=== PATIENT | male | born 1965 | race Two or more races ===

== ENCOUNTER 2019-03-23 07:05 | Observation (INO) | payer OTHER ==
[~2019-03-23] VITALS: Ht 167.6 cm; Wt 127.8 kg
[~2019-03-23 07:05] MED LIST: FLUO10CA15 PO; HYDR-2541 PO; LEVA750T7 PO; MULTCAP PO; OMEP-172 PO; OSEL75CA PO; TYLE325T5 PO; ZYRT10CA PO
[2019-03-23] MEDS ORDERED: LORazepam 2 MG/ML VIAL (J2060) IV STA (07:27)
[2019-03-23 07:40] LABS: BASO # 0.1 10^3/uL (0.0-0.2); BASO % 0.6 % (0.0-1.0); EOS # 0.3 10^3/uL (0.0-0.5); EOS % 4.2 % (0.0-3.0); HEMATOCRIT 51.2 % (42.0-52.0); HEMOGLOBIN 16.8 g/dl (13.5-17.5); LYMPH # 3.6 10^3/uL (1.5-5.0); LYMPH % 43.6 % (24.0-44.0); MEAN CORPUSCULAR HEMOGLOBIN 28.6 pg (27.0-33.0); MEAN CORPUSCULAR HGB CONC 32.8 g/dl (32.0-36.5); MEAN CORPUSCULAR VOLUME 87.1 fl (80.0-96.0); MONO # 0.5 10^3/uL (0.0-0.8); MONO % 5.8 % (0.0-5.0); NEUTROPHILS # 3.7 10^3/uL (1.5-8.5); NEUTROPHILS % 45.6 % (36.0-66.0); PLATELET COUNT, AUTOMATED 253 10^3/uL (150-450); RED BLOOD COUNT 5.88 10^6/uL (4.30-6.10); WHITE BLOOD COUNT 8.1 10^3/uL (4.0-10.0)
[2019-03-23 07:49] LABS: ABG BASE EXCESS 1.9 (-2.0-2.0); ABG HCO3 21.3 MEQ/L (22.0-26.0); ABG O2 SATURATION 99.6 % (95.0-99.0); ABG PARTIAL PRESSURE CO2 22.7 mmHg (35.0-45.0); ABG PARTIAL PRESSURE O2 387.9 mmHg (75.0-100.0); ABG STANDARD HCO3 26.2 MEQ/L (22.0-26.0)
--- NOTE | 2019-03-23 08:05 | REP ---
Portable chest x-ray: Single view. History: Chest pain. Comparison chest x-ray: April 13, 2015. Findings: Monitoring electrodes are seen overlying the chest. Heart is not enlarged. Pulmonary vasculature is not increased. No infiltrate is seen in the lung gunn. No bony abnormality. Impression: No acute disease. Electronically Signed by Nikita Faulkner MD 03/23/2019 07:57 A
[2019-03-23 08:13] LABS: BLOOD UREA NITROGEN 20 MG/DL (7-18); CALCIUM LEVEL 9.9 MG/DL (8.5-10.1); CARBON DIOXIDE LEVEL 25 MEQ/L (21-32); CHLORIDE LEVEL 104 MEQ/L (98-107); CK-MB VALUE MASS 2.7 NG/ML (<3.6); CPK CREATINE PHOSPHOKINASE 491 U/L (39-308); CREATININE FOR GFR 1.34 MG/DL (0.70-1.30); GLOMERULAR FILTRATION RATE 59.6 (>56); GLUCOSE, FASTING 107 MG/DL (70-100); MB/CK RELATIVE INDEX 0.55 (< OR =4); SODIUM LEVEL 139 MEQ/L (136-145); TROPONIN I < 0.02 NG/ML (< 0.10)
[2019-03-23] MEDS ORDERED: VITA100066 PO (08:27)
[2019-03-23] MEDS ORDERED: BUSP5TA PO (08:27)
[2019-03-23] MEDS ORDERED: DICL50TAB PO (08:27)
[2019-03-23] MEDS ORDERED: MM S100C PO ×2 (08:27)
[2019-03-23] MEDS ORDERED: ROSU40TA4 PO (08:27)
[2019-03-23] MEDS ORDERED: REFR0.5D8 OU (08:27)
[2019-03-23] MEDS ORDERED: MECLIZINE 25 MG TABLET PO ONE (09:00)
--- NOTE | 2019-03-23 09:27 | REP ---
CT brain: 03/23/2019. Indication: Dizziness. Nystagmus. Comparison: None. Technique: Unenhanced axial CT images of the brain were obtained from skull base to vertex. Findings: Mild diffuse volume loss is present. There is no acute intracranial hemorrhage, acute cortical infarction, mass effect or hydrocephalous. The visualized paranasal sinuses and mastoid air cells are free of significant fluid. Impression: No acute intracranial process. Mild diffuse volume loss. Electronically Signed by Perry Cardenas DO 03/23/2019 09:18 A
[2019-03-23] MEDS ORDERED: TRIA37.5 PO (12:59)
[2019-03-23] MEDS ORDERED: SENN-23 PO (12:59)
[2019-03-23] MEDS ORDERED: ADVI200T PO (12:59)
[2019-03-23] MEDS ORDERED: ACETAMINOPHEN TAB 650MG DOSE (2X325MG) PO PRN (13:15)
[2019-03-23] MEDS ORDERED: MAALOX 30 ML SUSP *UDC PO PRN (13:15)
[2019-03-23] MEDS ORDERED: ALPRAZolam 0.25 MG TAB PO PRN (13:15)
[2019-03-23] MEDS ORDERED: MOM 30ML SUSPENSION UDC PO PRN (13:15)
[2019-03-23] MEDS ORDERED: SENOKOT S TAB PO PRN (13:30)
[2019-03-23] MEDS ORDERED: IBUPROFEN 200 MG TAB PO PRN (13:30)
[2019-03-23] MEDS ORDERED: busPIRone 5 MG TAB PO PRN (13:30)
--- NOTE | 2019-03-23 13:37 | HPEPDOC ---
General Date of Admission Mar 23, 2019 at 13:11 Date of Service: Mar 23, 2019 Primary Care Physician: A Chief Complaint The patient is a 53-year-old male admitted with a reason for visit of Shawn (Acute Kidney Injury. Source: Patient Exam Limitations: No limitations Timing/Duration: Unsure Severity: Mild Associated Symptoms: Other (chest pressure, dizziness, shortness of breath, anxious) History of Present Illness 53 years old -[place] male with past medical history of anxiety, hypertension, mood swings, seasonal allergies, obesity, status post lower back surgery and likely surgery and foot surgery, was in usual state of health until he called his ex- as he was complaining of chest pressure, shortness of breath, anxious and as per his ex-. He was yelling in the car. Chest pressure much underlies all of the chest pressure-like feeling, nonradiating, associated with shortness of breath and dizziness and doom-like feeling, not relieved with any medication and not exacerbated by any position. Patient again felt dizzy before discharge from ED and hence we were called in to admit patient for observation. Home Medications Scheduled Cholecalciferol (Vitamin D3) (Vitamin D3) 1,000 Unit Tablet, 2,000 UNIT PO DAILY, (Reported) Diclofenac Sodium (Diclofenac Sodium) 50 Mg Tablet.dr, 100 MG PO BID, (Reported) Multivitamin (Multivitamins) 1 Cap Cap, 1 CAP PO DAILY, (Reported) Omeprazole (Omeprazole) 20 Mg Cap, 20 MG PO BID, (Reported) Rosuvastatin Calcium (Rosuvastatin Calcium) 40 Mg Tablet, 40 MG PO DAILY, (Reported) Triamterene/Hydrochlorothiazid (Triamterene-Hctz 37.5-25 mg Tb) 1 Each Tablet, 1 TAB PO DAILY, (Reported) Scheduled PRN Buspirone HCl (Buspirone HCl) 5 Mg Tablet, 5 MG PO TID PRN for ANXIETY/AGITATION, (Reported) Carboxymethylcellulose Sodium (Refresh Tears) 15 Ml Drops, 1 DROP OU QID PRN for DRY EYES, (Reported) Ibuprofen (Advil) 200 Mg Tablet, 400 MG PO QID PRN for PAIN, (Reported) Sennosides/Docusate Sodium (Senna-S Tablet) 1 Each Tablet, 3 TAB PO TID PRN for CONSTIPATION, (Reported) Allergies Coded Allergies: shellfish derived (Verified Allergy, Severe, anaphylaxis, 03/23/19) ENVIROMENTAL (Verified Allergy, Mild, 03/23/19) Past Medical History Medical History Hypertension, mood swings, seasonal allergy, obesity, GERD Surgical History Lower back surgery likely surgery, bone spur surgery to both feet Social History * Smoker: Denies Alcohol: Denies Drugs: denies A-FIB/CHADSVASC A-FIB History Current/History of A-Fib/PAF?: No Review of Systems Constitutional: Denies: Chills, Fever, Malaise, Night Sweats, Weakness, Fatigue, Weight Loss, Lethargy, Other Eyes: Denies: Pain, Vision change, Conjunctivae inflammation, Eyelid inflammation, Redness, Other ENT: Denies: Head Aches, Ear Pain, Dysphagia, Sinus Congestion, Post Nasal Drip, Sore Throat, Epistaxis, Other Symptoms Skin: Denies: Rash, Lesions, Jaundice, Bruising, Itching, Dry, Breakdown, Nail Changes, Other Pulmonary: Reports: Dyspnea Cardiovascular: Reports: Chest Pain Gastrointestinal: Denies: Nausea, Vomiting, Abdominal Pain, Diarrhea, Constipation, Melena, Hematochezia, Other Symptoms Genitourinary: Denies: Dysuria, Frequency, Incontinence, Hematuria, Retention, Other Symptoms Hematologic: Denies: Bruising, Bleeding Excessively, Petecchia, Purpura, Enlarged Lymph Nodes, Other Hematologic Endocrine: Denies: Polydipsia, Polyphagia, Polyuria, Heat Intolerance, Cold Intolerance, Other Endocrine Sx Musculoskeletal: Denies: Neck Pain, Back Pain, Shoulder Pain, Arm Pain, Hand Pain, Leg Pain, Foot Pain, Joint Pain, Muscle Pain, Spasms, Other Symptoms Neurological: Denies: Weakness, Numbness, Incoordination, Change in speech, Confusion, Seizures, Other Symptoms Psych: Reports: Anxiety Physical Examination General Exam: Positive: Alert, Cooperative Eye Exam: Positive: PERRLA, Conjunctiva & lids normal ENT Exam: Positive: Atraumatic, Mucous membr. moist/pink Neck Exam: Positive: Supple Chest Exam: Positive: Clear to auscultation, Normal air movement Heart Exam: Positive: Rate Normal, Normal S1, Normal S2 Abdomen Exam: Positive: Normal bowel sounds, Soft, Tenderness Extremity Exam: Positive: Normal pulses Skin Exam: Positive: Nl turgor and temperature Neuro Exam: Positive: Strength at 5/5 X4 ext, Sensation Intact, Cranial Nerves 3-12 NL Psych Exam: Positive: Anxiety Vital Signs Vital Signs Date Time Temp Pulse Resp B/P (MAP) Pulse Ox O2 Delivery O2 Flow Rate FiO2 03/23/19 12:00 68 18 111/63 (79) 96 03/23/19 07:06 96.0 Room Air Laboratory Data Labs 24H Laboratory Tests 2 03/23/19 07:19: Immature Granulocyte % (Auto) 0.2, Neutrophils (%) (Auto) 45.6, Lymphocytes (%) (Auto) 43.6, Monocytes (%) (Auto) 5.8H, Eosinophils (%) (Auto) 4.2H, Basophils (%) (Auto) 0.6, Neutrophils # (Auto) 3.7, Lymphocytes # (Auto) 3.6, Monocytes # (Auto) 0.5, Eosinophils # (Auto) 0.3, Basophils # (Auto) 0.1, Nucleated Red Blood Cells % (auto) 0.0, Anion Gap 10, Glomerular Filtration Rate 59.6, Calcium Level 9.9, Total Creatine Kinase 491H, Creatine Kinase MB 2.7, Creatine Kinase MB Relative Index 0.55, Troponin I < 0.02 03/23/19 07:36: Blood Gas Bicarbonate Standard 26.2H, Arterial Blood pH 7.590H, Arterial Blood Partial Pressure CO2 22.7L, Arterial Blood Partial Pressure O2 387.9H, Arterial Blood Total CO2 22.0, Arterial Blood HCO3 21.3L, Arterial Blood Base Excess 1.9, Arterial Blood Oxygen Saturation 99.6H CBC/BMP Laboratory Tests 03/23/19 07:19 Problems (1) Chest pressure Status: Acute Problem Text: 53 years old -[place] male with past medical history of anxiety, hypertension, mood swings, seasonal allergies, obesity, status post lower back surgery and likely surgery and foot surgery, was in usual state of health until he called his ex- as he was complaining of chest pressure, shortness of breath, anxious and as per his ex-. He was yelling in the car. Chest pressure much underlies all of the chest pressure-like feeling, nonradiating, associated with shortness of breath and dizziness and doom-like feeling, not relieved with any medication and not exacerbated by any position. Patient is completely asymptomatic. This time. No chest pain, headache, shortness of breath, nausea, vomiting, abdominal pain, etc. Admit patient to [facility] floor with telemetry for observation Serial troponins CBC, CMP in a.m. Anxiolytic medication for anxiety DVT prophylaxis with Lovenox Regular diet Activity as tolerated (2) SHAWN (acute kidney injury) Status: Acute Problem Text: Most likely prerenal and patient also dyazide diuretics Hold diuretics Start half-normal saline 150 mL per hour Reginald labs in a.m. (3) Vertigo Status: Acute Problem Text: None, most likely secondary to anxiety , No further workup needed at the present time , Antivert when necessary (4) Anxiety Status: Chronic Problem Text: Anxiety disorder, possible panic episodes Xanax 0.25 mg by mouth every 6 hours when necessary Further workup management with PCP as an outpatient Plan / VTE VTE Prophylaxis Ordered?: Yes EDENILSON MCMANUS MD Mar 23, 2019 13:37
[2019-03-23 15:49] VITALS: BP 135/62
[2019-03-23] MEDS: DOCUSATE SODIUM 100 MG CAP PO SCH ×2 (16:54→20:45)
[2019-03-23] MEDS: MECLIZINE 25 MG TABLET PO PRN (16:55)
[2019-03-23] MEDS: NS 1,000 ML IV SCH ×2 (16:55→23:48)
--- NOTE | 2019-03-23 20:13 | ECGEPIP ---
[facility] - ED Test Date: 2019-03-23 Pat Name: CARLOS GREGORIO Department: Room: - Gender: Male [employer]: : 1965 Requested By: Adam Arce Order Number: [id number] Reading MD: Andra Gu Measurements Intervals [place] Rate: 67 P: 60 DC: 179 QRS: 26 QRSD: 88 T: 23 QT: 401 QTc: 426 Interpretive Statements SINUS RHYTHM NSTTW abnormalities NO PRIOR Electronically Signed on 03-23-2019 20:13:33 EST by Andra Gu
[2019-03-23] MEDS: OMEPRAZOLE 20 MG CAP PO SCH (20:45)
[2019-03-23] MEDS ORDERED: ENOXAPARIN 40 MG/0.4 ML SYRINGE (J1650) SC SCH (21:00)
[2019-03-23 22:00] VITALS: BP 126/81
[2019-03-24 04:00] VITALS: BP 129/81
[2019-03-24] MEDS: NS 1,000 ML IV SCH ×2 (05:15→06:55)
[2019-03-24 05:59] LABS: HEMOGLOBIN 15.6 g/dl (13.5-17.5); MEAN CORPUSCULAR HEMOGLOBIN 28.3 pg (27.0-33.0); MEAN CORPUSCULAR HGB CONC 31.8 g/dl (32.0-36.5); MEAN CORPUSCULAR VOLUME 88.9 fl (80.0-96.0); PLATELET COUNT, AUTOMATED 221 10^3/uL (150-450); RED BLOOD COUNT 5.51 10^6/uL (4.30-6.10); WHITE BLOOD COUNT 6.3 10^3/uL (4.0-10.0)
[2019-03-24 06:28] LABS: ALBUMIN 3.4 GM/DL (3.2-5.2); ALT/SGPT 55 U/L (12-78); BILIRUBIN,TOTAL 0.7 MG/DL (0.2-1.0); BLOOD UREA NITROGEN 17 MG/DL (7-18); CALCIUM LEVEL 8.6 MG/DL (8.5-10.1); CARBON DIOXIDE LEVEL 27 MEQ/L (21-32); CHLORIDE LEVEL 108 MEQ/L (98-107); CREATININE FOR GFR 1.12 MG/DL (0.70-1.30); GLOMERULAR FILTRATION RATE > 60.0 (>56); GLUCOSE, FASTING 103 MG/DL (70-100); MAGNESIUM LEVEL 2.1 MG/DL (1.8-2.4); POTASSIUM SERUM 3.9 MEQ/L (3.5-5.1); SODIUM LEVEL 143 MEQ/L (136-145); TOTAL PROTEIN 7.1 GM/DL (6.4-8.2)
[2019-03-24] MEDS: OMEPRAZOLE 20 MG CAP PO SCH (08:11)
[2019-03-24] MEDS: DOCUSATE SODIUM 100 MG CAP PO SCH (08:11)
[2019-03-24] MEDS: MECLIZINE 25 MG TABLET PO PRN (08:11)
[2019-03-24] MEDS ORDERED: ROSUVASTATIN 10 MG TAB (CRESTOR) PO SCH (09:00)
[2019-03-24] MEDS ORDERED: VITAMIN D 1,000 INTERNATIONAL UNITS TABLET PO SCH (09:00)
[2019-03-24] MEDS ORDERED: DYAZIDE 37.5/25 CAP (TRIAM/HCTZ) PO SCH (09:00)
[2019-03-24] MEDS ORDERED: MECL-86 PO (10:15)
--- NOTE | 2019-03-24 12:58 | DS.PDOC ---
Discharge Summary General Date of Admission Mar 23, 2019 at 13:11 Date of Discharge 03/24/19 Discharge Summary PROCEDURES PERFORMED DURING STAY: None. ADMITTING DIAGNOSES: 1. Dizziness, SHAWN. DISCHARGE DIAGNOSES: 1. Dizziness, SHAWN, hypertension COMPLICATIONS/CHIEF COMPLAINT: Shawn (Acute Kidney Injury. HISTORY OF PRESENT ILLNESS: 53 years old -Citizen Of [place] male with past medical history of anxiety, hypertension, mood swings, seasonal allergies, obesity, status post lower back surgery and likely surgery and foot surgery, was in usual state of health until he called his ex- as he was complaining of chest pressure, shortness of breath, anxious and as per his ex-. He was yelling in the car. Chest pressure much underlies all of the chest pressure-like feeling, nonradiating, associated with shortness of breath and dizziness and doom-like feeling, not relieved with any medication and not exacerbated by any position. Patient again felt dizzy before discharge from ED and hence we were ca lled in to admit patient for observation.. HOSPITAL COURSE: Patient was admitted to [facility] with telemetry for further observation. Patient's dizziness has resolved. His troponins 3 were negative, and all the workup essentially was within normal limits and he wishes to be discharged. Patient will be discharged home on all his current home medication as well as an Also discussed with patient his ex- on the phone on patient's wishes and explained the patient the medical management and his admission to her. Patient will follow with his PCP for continued care... DISCHARGE MEDICATIONS: Please see below. ALLERGIES: Please see below. PHYSICAL EXAMINATION ON DISCHARGE: VITAL SIGNS: Please see below. GENERAL: Within normal limits HEENT: [PERRLA, ocular muscles intact NECK: Supple. Negative JVD, negative lymphadenopathy CARDIOVASCULAR EXAMINATION: S1, S2, regular RESPIRATORY EXAMINATION: Clear to A&P ABDOMINAL EXAMINATION: , Soft, nontender, bowel sounds present EXTREMITIES: No clubbing, cyanosis, edema SKIN: Within normal limits NEUROLOGICAL EXAMINATION: Focal motor sensory deficit PSYCHIATRIC EXAMINATION: Normal LABORATORY DATA: Please see below. IMAGING: None PROGNOSIS: Good ACTIVITY: As tolerated. DIET: As tolerated DISCHARGE PLAN: As per discharge plan DISPOSITION: 01 Home, Self-Care. DISCHARGE INSTRUCTIONS: 1. As per discharge instructions. ITEMS TO FOLLOWUP ON ON OUTPATIENT: 1. Follow with PCP in one week. DISCHARGE CONDITION: Stable. TIME SPENT ON DISCHARGE: 36 minutes. Vital Signs/I&Os Vital Signs Date Time Temp Pulse Resp B/P (MAP) Pulse Ox O2 Delivery O2 Flow Rate FiO2 03/24/19 04:00 98.2 78 18 129/81 (97) 98 Room Air I&O- Last 24 Hours up to 6 AM 03/24/19 06:00 Intake Total 300 ml Output Total 300 ml Balance 0 ml Laboratory Data Labs 24H Laboratory Tests 2 03/23/19 16:06: Troponin I < 0.02 03/23/19 21:41: Troponin I < 0.02 03/24/19 05:25: Nucleated Red Blood Cells % (auto) 0.0, Anion Gap 8, Glomerular Filtration Rate > 60.0, Calcium Level 8.6, Magnesium Level 2.1, Total Bilirubin 0.7, Aspartate Amino Transf (AST/SGOT) 29, Alanine Aminotransferase (ALT/SGPT) 55, Alkaline Phosphatase 92, Total Protein 7.1, Albumin 3.4, Albumin/Globulin Ratio 0.92L CBC/BMP Laboratory Tests 03/24/19 05:25 Discharge Medications Scheduled Cholecalciferol (Vitamin D3) (Vitamin D3) 1,000 Unit Tablet, 2,000 UNIT PO DAILY, (Reported) Diclofenac Sodium (Diclofenac Sodium) 50 Mg Tablet.dr, 100 MG PO BID, (Reported) Multivitamin (Multivitamins) 1 Cap Cap, 1 CAP PO DAILY, (Reported) Omeprazole (Omeprazole) 20 Mg Cap, 20 MG PO BID, (Reported) Rosuvastatin Calcium (Rosuvastatin Calcium) 40 Mg Tablet, 40 MG PO DAILY, (Reported) Triamterene/Hydrochlorothiazid (Triamterene-Hctz 37.5-25 mg Tb) 1 Each Tablet, 1 TAB PO DAILY, (Reported) Scheduled PRN Buspirone HCl (Buspirone HCl) 5 Mg Tablet, 5 MG PO TID PRN for ANXIETY/AGITATION, (Reported) Carboxymethylcellulose Sodium (Refresh Tears) 15 Ml Drops, 1 DROP OU QID PRN for DRY EYES, (Reported) Ibuprofen (Advil) 200 Mg Tablet, 400 MG PO QID PRN for PAIN, (Reported) Meclizine HCl (Meclizine HCl) 25 Mg Tablet, 25 MG PO Q6HP PRN for DIZZYNESS Sennosides/Docusate Sodium (Senna-S Tablet) 1 Each Tablet, 3 TAB PO TID PRN for CONSTIPATION, (Reported) Allergies Coded Allergies: shellfish derived (Verified Allergy, Severe, anaphylaxis, 03/23/19) ENVIROMENTAL (Verified Allergy, Mild, 03/23/19) EDENILSON MCMANUS MD Mar 24, 2019 12:58
== END 2019-03-24 11:12 | disposition home or self-care (01) ==
LOC: M ED 07:05 → M ED INP 13:11 → M MSPAV 15:48
PROVIDERS: ADMIT Internal Medicine; ATTEND Internal Medicine
DX: N17.9 Acute kidney failure, unspecified (principal); R42 Dizziness and giddiness; I10 Essential (primary) hypertension; F41.9 Anxiety disorder, unspecified; E66.9 Obesity, unspecified; F34.9 Persistent mood [affective] disorder, unspecified; Z79.899 Other long term (current) drug therapy; Z91.013 Allergy to seafood
CPT/HCPCS: 36415; 36600; 70450; 71045; 80048; 80053; 82550; 82553; 82803; 83735; 84484; 85025; 85027; 93005; 93041; 96361; 96374; 99285; J2060

== ENCOUNTER → 2021-11-23 | Outpatient (CLI) | payer OTHER ==
[~2021-11-23] MED LIST changes: +ADVI200T PO; +BUSP5TA PO; +DICL50TAB PO; -FLUO10CA15 PO; +FLUO10CA18 PO; +MECL-86 PO; +MM S100C PO; -OMEP-172 PO; +OMEP1CAP73 PO; +REFR0.5D8 OU; +ROSU40TA4 PO; +SENN-23 PO; +TRIA37.5 PO; +VITA100066 PO
== END ==
LOC: M PLAIMG 09:49
PROVIDERS: ATTEND Internal Medicine
DX: M51.26 Other intervertebral disc displacement, lumbar region (principal); M48.062 Spinal stenosis, lumbar region with neurogenic claudication; Z85.828 Personal history of other malignant neoplasm of skin; Z96.698 Presence of other orthopedic joint implants

== ENCOUNTER → 2022-05-07 | Outpatient (CLI) | payer OTHER | LOC: M RAD 14:58 | PROVIDERS: ATTEND Physician Assistant | DX: R06.00 Dyspnea, unspecified (principal) ==

== ENCOUNTER → 2022-06-10 | Outpatient (CLI) | payer OTHER ==
[~2022-06-10] MED LIST changes: +METHACHOLINE KIT INH ONE
== END ==
LOC: M CARPUL 11:56
PROVIDERS: ATTEND Physician Assistant
DX: R06.00 Dyspnea, unspecified (principal)
CPT/HCPCS: 94070; 95070; J7674

== ENCOUNTER → 2022-07-09 | Outpatient (CLI) | payer OTHER ==
[~2022-07-09] MED LIST changes: -METHACHOLINE KIT INH ONE
== END ==
LOC: M RAD 12:29
PROVIDERS: ATTEND Physician Assistant
DX: R06.00 Dyspnea, unspecified (principal); R94.2 Abnormal results of pulmonary function studies; Z65.5 Exposure to disaster, war and other hostilities